=== PATIENT | male | born 1975 | race Caucasian/White ===

== ENCOUNTER 2022-01-01 09:22 | Emergency (ER) | payer BC ==
[2022-01-01] MEDS ORDERED: Aspirin 81 MG Tab.Chew PO STA (09:34)
[2022-01-01] MEDS ORDERED: hydrALAZINE 20 MG/ML SDV IM ONE (09:34)
== END 2022-01-01 11:15 | disposition home or self-care (01) ==
LOC: FB.ED 09:22
DX: R07.9 Chest pain, unspecified (principal); I10 Essential (primary) hypertension; Z91.048 Other nonmedicinal substance allergy status; Z79.899 Other long term (current) drug therapy
CPT/HCPCS: 36415; 71045; 80053; 84484; 85025; 93005; 96372; 99285-25; A9270-GY; J0360